=== PATIENT | female | born 1985 | race Caucasian/White ===

== ENCOUNTER 2020-01-05 08:13 | Emergency (ER) | payer BC ==
[2020-01-05 08:18] VITALS: BP 142/94; RESP 20; TEMP 98.3
[2020-01-05] MEDS ORDERED: IPRATROPIUM-ALBUTEROL 3 ML NEB INHALATION STA (08:30)
[2020-01-05] MEDS ORDERED: IBUPROFEN 600 MG TAB PO STA (08:30)
--- NOTE | 2020-01-05 08:50 | ED ---
SOB HPI - General Chief Complaint: Shortness of Breath Stated Complaint: SOB Time Seen by Provider: 01/05/20 08:20 Source: patient, RN notes reviewed Mode of arrival: ambulatory Limitations: no limitations - History of Present Illness Initial Comments: This is a 34-year-old female presents emergency Department with chief complaint of cough, congestion. Patient states that symptoms started last 24 hours. She states that her family member was sick with similar symptoms. Patient states that she did not feel well yesterday states she had an episode of vomiting and slowly developed a cough is dry, hacking nonproductive. She states that she had a low-grade temp she has pain when she takes a deep breath in her ribs and left side. Patient has benign past medical history denies any recent leg pain or leg swelling. Denies any prior cardiac or lung disease. Patient is a nonsmoker with NO KNOWN DRUG ALLERGIES. Patient states that she took some o [id number] cough medication without help some. - Related Data Previous Rx's Medication Instructions Recorded Oseltamivir [Tamiflu] 75 mg PO Q12HR #10 cap 01/05/20 Allergies Allergy/AdvReac Type Severity Reaction Status Date / Time No Known Allergies Allergy Verified 01/05/20 08:18 Review of Systems ROS Statement: Those systems with pertinent positive or pertinent negative responses have been documented in the HPI. ROS Other: All systems not noted in ROS Statement are negative. Past Medical History Past Medical History: No Reported History History of Any Multi-Drug Resistant Organisms: None Reported Past Surgical History: Appendectomy, Section Past Psychological History: No Psychological Hx Reported Smoking Status: Never smoker Past Alcohol Use History: None Reported Past Drug Use History: None Reported General Exam Limitations: no limitations General appearance: alert, in no apparent distress Head exam: Present: atraumatic, normocephalic, normal inspection Eye exam: Present: normal appearance, PERRL, EOMI. Absent: scleral icterus, conjunctival injection, periorbital swelling ENT exam: Present: normal exam, normal oropharynx, mucous membranes moist Neck exam: Present: normal inspection, full ROM. Absent: tenderness, meningismus, lymphadenopathy Respiratory exam: Present: wheezes. Absent: normal lung sounds bilaterally, respiratory distress, rales, rhonchi, stridor Cardiovascular Exam: Present: regular rate (Heart rate was 90 on exam, normal 105 on triage.), normal rhythm, normal heart sounds. Absent: systolic murmur, diastolic murmur, rubs, gallop, clicks Back exam: Absent: CVA tenderness (R), CVA tenderness (L) Neurological exam: Present: alert, oriented X3 Skin exam: Present: warm, dry, intact, normal color. Absent: rash Course Vital Signs 01/05/20 01/05/20 01/05/20 08:14 08:43 08:52 Temperature 98.3 F Pulse Rate 105 H 88 92 Respiratory 20 Rate Blood Pressure 142/94 O2 Sat by Pulse 98 Oximetry Medical Decision Making - Medical Decision Making Chest x-rays unremarkable. Patient's influenza B-positive. Patient be discharged on Tamiflu. We did discuss Tylenol and Motrin. We did discuss [id number] cough suppressant return parameters. - Lab Data Lab Results 01/05/20 Range/Units 08:36 Influenza Type A RNA Not Detected (Not Detectd) Influenza Type B (PCR) Detected H (Not Detectd) Disposition Clinical Impression: Influenza B Disposition: HOME SELF-CARE Condition: Stable Instructions (If sedation given, give patient instructions): Influenza (ED) Additional Instructions: Please return to the Emergency Department if symptoms worsen or any other concerns. Prescriptions: Oseltamivir [Tamiflu] 75 mg PO Q12HR #10 cap Is patient prescribed a controlled substance at d/c from ED?: No Referrals: Darren Rock DO [Primary Care Provider] - 1-2 days Time of Disposition: 09:46
[2020-01-05 08:53] VITALS: PULSE 92
[2020-01-05] MEDS ORDERED: OSELTAMIVIR 75 MG CAP PO STA (09:16)
--- NOTE | 2020-01-05 09:27 | XR ---
EXAMINATION TYPE: XR chest 2V DATE OF EXAM: 01/05/2020 COMPARISON: None HISTORY: 34-year-old female with cough and shortness of breath TECHNIQUE: PA and lateral views FINDINGS: The cardiomediastinal silhouette, aorta, and pulmonary vasculature are within normal limits. Mild jemma tral interstitial prominence. No consolidation or pleural effusion. IMPRESSION: Mild central interstitial prominence could reflect bronchitis or asthma. No focal infiltrate.
== END 2020-01-05 09:55 | disposition home or self-care (01) ==
LOC: EC 08:13
DX: J10.1 Influenza due to other identified influenza virus with other respiratory manifestations (principal)
CPT/HCPCS: 71046; 87502; 94640; 99285

== ENCOUNTER → 2024-01-11 | Outpatient (CLI) | payer BC ==
--- NOTE | 2024-01-14 14:51 | MM ---
Reason for Exam: Screening (asymptomatic). Baseline mammogram. Patient History: Menarche at age 13. First Full-Term at age 22. Premenopausal. Last menstrual period: 12/28/2023 Risk Values: [place] 5 year model risk: 0.4%. NCI Lifetime model risk: 9.1%. Prior Study Comparison: Patient's first Mammogram. Tissue Density: There are scattered fibroglandular densities. Findings: Analyzed By CAD. The pattern is symmetrical. Few scattered benign punctate calcifications are present bilaterally. No suspicious groups of microcalcifications, spiculated or lobular masses, architectural distortion or other secondary signs of malignancy are mammographically apparent. Overall Assessment: Benign, BI-RAD 2 Management: Screening Mammogram of both breasts in 1 year. A negative mammogram report should not preclude additional follow up of suspicious palpable abnormalities. Patient should continue monthly self breast exam. A clinical breast exam by your physician is recommended on an annual basis and results should be correlated with mammographic findings. Electronically signed and approved by: Darren Garvey D.O. Radiologis
== END | disposition home or self-care (01) ==
LOC: RADMAMWWP 07:49
PROVIDERS: ATTEND Obstetrics & Gynecology
DX: Z12.31 Encounter for screening mammogram for malignant neoplasm of breast (principal)
CPT/HCPCS: 77063; 77067